=== PATIENT | female | born 1940 | race African-American/Black ===

== ENCOUNTER 2020-11-22 16:03 | Emergency (ER) | payer MEDICARE, MEDICAID, SELFPAY ==
[2020-11-22 16:18] VITALS: BP 142/61; PULSE 81; RESP 20; TEMP 36.3; O2SAT 98
--- NOTE | 2020-11-22 16:24 | ED.LOWEXIN ---
HPI - Extremity Injury (Lower) General Chief Complaint: Abdominal Pain Stated Complaint: right side/leg pain Time Seen by Provider: 11/22/20 16:25 Source: patient and RN notes reviewed Mode of arrival: ambulatory Limitations: no limitations History of Present Illness HPI Narrative: 80-year-old female presents to the [facility] with complaints of right flank, right-sided abdominal pain since . Has been taking tramadol with no relief. Denies chest pain or shortness of breath. No nausea vomiting or diarrhea. Denies any urinary symptoms. States that she has a history of an appendectomy and a gallbladder surgery along with toe surgery and wrist surgery. Patient has a history of hypertension, neuropathy, GERD, depression, thyroid disease and high cholesterol. It is worse with movement. No midline tenderness. Patient states that she is very concerned that something more serious and wants to know what it is. Discussed with patient that we do not have that capability. CT scan with and lab work would be required. To receive those she would have to go to the ER. Patient declined EMS transport and requested that her family member bring her to [facility] emergency room Related Data Home Medications Medication Instructions Recorded Confirmed amlodipine 11/22/20 apixaban [Eliquis] mg 11/22/20 atorvastatin 11/22/20 carvedilol 11/22/20 cefdinir mg 11/22/20 cholecalciferol (vitamin D3) 11/22/20 gabapentin 11/22/20 hydralazine 11/22/20 levothyroxine 11/22/20 pantoprazole PO 11/22/20 tramadol mg 11/22/20 Allergies Allergy/AdvReac Type Severity Reaction Status Date / Time GUILLERMO Inhibitors Allergy Anaphylaxis Verified 11/22/20 17:06 hydromorphone AdvReac Confusion Verified 11/22/20 17:06 lisinopril AdvReac Gastrointestinal Verified 11/22/20 17:06 Upset Review of Systems Review of Systems: All systems reviewed & are unremarkable except as noted in HPI and below Constitutional: Constitutional: Reports no additional constitutional complaints, Denies chills and Denies fever(s) Eyes: Eyes: Reports no additional eye complaints ENT: Reports system reviewed and no additional complaints, except as documented Cardiovascular: Cardiovascular: Reports no additional cardiovascular complaints, Denies chest pain and Denies radiating jaw, neck or arm pain Respiratory: Respiratory: Reports no additional respiratory complaints, Denies cough and Denies dyspnea Gastrointestinal: Gastrointestinal: Reports as per HPI, Reports abdominal pain (Right sided), Denies diarrhea, Denies nausea and Denies vomiting Genitourinary: Genitourinary: Reports as per HPI, Denies nocturia and Reports flank pain (Right-sided) Musculoskeletal: Musculoskeletal: Reports as per HPI, Reports back pain (Right flank pain) and Denies myalgias Integumentary/Breasts: Skin/Breast: Reports system reviewed and no additional complaints, except as docu Neurologic: Reports system reviewed and no additional complaints, except as documented Psychiatric: Psychiatric: Reports no additional psychiatric complaints Allergic/Immunologic: Allergic/Immunologic: Reports no additional allergic/immunologic complaints PMFSH Past Medical History Medical History (Updated 11/25/20 @ 09:09 by Perri Mason) Depression H/O gastroesophageal reflux (GERD) High cholesterol Hypertension Neuropathy Thyroid disease Surgical History Surgical History (Updated 11/22/20 @ 16:41 by Perri Mason) Hx of appendectomy Hx of cholecystectomy Social History Social History Gender identity (if verbalized by the patient): Female Comments At the time of my signature, I reviewed and agree with the nursing past medical, surgical, social, and family history. There is no relevant family history pertinent to the patient complaint. Exam Const: General: no acute distress, alert and ill appearing acutely (mild pain, holdi
== END 2020-11-22 17:00 | disposition short-term general hospital (02) ==
PROVIDERS: Emergency Provider Nurse Practitioner
DX: R10.9 Unspecified abdominal pain (principal); K21.9 Gastro-esophageal reflux disease without esophagitis; E78.00 Pure hypercholesterolemia, unspecified; I10 Essential (primary) hypertension; G62.9 Polyneuropathy, unspecified; E03.9 Hypothyroidism, unspecified
CPT/HCPCS: 99211; G0463

== ENCOUNTER 2023-03-29 21:03 | Emergency (ER) | payer MEDICARE, MEDICAID, SELFPAY ==
--- NOTE | ~2023-03-29 | CT_ITS ---
EXAMINATION: CT abdomen pelvis w con DATE: 03/30/2023 04:04 INDICATION: Epigastric abdominal pain. Nausea and vomiting. TECHNIQUE: Computed tomography (CT) of the abdomen and pelvis was performed with 100 mL Omnipaque 350 intravenous contrast. Automated exposure control and iterative reconstruction technique were employe d. The dose-length product was 1496.92 mGy-cm. COMPARISON: None. FINDINGS: The visualized portions of the lung bases demonstrate mild atelectasis. No pleural effusion . Cardiomegaly is noted. No pericardial effusion. There are pacer wires in right atrium and right adama tricle. There is a small sliding hiatal hernia. The liver is normal. There are changes of cholecystec miranda. The spleen, pancreas, and adrenal glands are normal. There is cortical thinning of the kidneys. There are cysts in the kidneys measuring up to 2.9 cm on the right. There are no dilated loops of daysi wel. The appendix is not visualized. There is calcified atherosclerosis of the aorta and many of the other arteries. There are no pathologically enlarged lymph nodes. There is no free intraperitoneal fl uid. There is mild lumbar spondylosis. There are bridging endplate osteophytes at multiple levels in the thoracic spine, consistent with diffuse idiopathic skeletal hyperostosis (DISH). IMPRESSION: 1. Small sliding hiatal hernia. Reviewed, dictated and finalized at location [facility]
[2023-03-29 21:19] VITALS: BP 149/62; PULSE 66; RESP 18; TEMP 36.1; O2SAT 100
[2023-03-29 23:37] VITALS: BP 193/78; PULSE 60; RESP 14; TEMP 36.1; O2SAT 97
[2023-03-29 23:55] VITALS: BP 180/66; PULSE 60
[2023-03-29 23:57] LABS: Basophils Percent Auto 0.4 % (0.2-1.2); Eosinophils Absolute Auto 0.1 K/mm3 (0-0.3); Eosinophils Percent Auto 1.4 % (0-4.4); Hematocrit 50.5 % (37.0-47.0); Hemoglobin 15.3 g/dL (12.0-15.0); Immature Granulocyte Absolute 0.02 K/mm3 (0.00-0.031); Immature Granulocyte Percent A 0.2 % (0-0.5); Lymphocytes Absolute Auto 1.44 K/mm3 (0.9-3.2); Lymphocytes Percent Auto 15.2 % (18.3-44.2); Mean Corpuscular HGB Conc 30.3 g/dl (32-36); Mean Corpuscular Hemoglobin 27.2 pg (26-34); Mean Corpuscular Volume 89.9 fl (80-100); Mean Platelet Volume 10.9 fl (7.4-10.4); Monocytes Absolute Auto 0.5 K/mm3 (0.1-0.6); Monocytes Percent Auto 4.7 % (2.6-8.5); Neutrophils Absolute Auto 7.4 K/mm3 (1.3-6.7); Neutrophils Percent Auto 78.1 % (45.5-73.1); Platelet Count Result 280 k/mm3 (150-375); Red Blood Count 5.62 M/mm3 (4.2-5.4); Red Cell Distribution Width 13.1 % (11.5-14.5); White Blood Count 9.5 K/mm3 (4.5-10.0)
[2023-03-29 23:58] VITALS: BP 179/71; PULSE 62
[2023-03-30] VITALS (24 sets, daily range): BP systolic 143–180; BP diastolic 57–97; PULSE 60–82; RESP 12–18; TEMP 36.5; O2SAT 94–100
[2023-03-30 00:06] LABS: Alanine Aminotransferase 22 U/L (6-35); Albumin Level 4.5 g/dL (3.5-5.1); Alkaline Phosphatase 104 U/L (38-126); Anion Gap 8 mmol/L (8-16); Aspartate Amino Transferase 30 U/L (14-36); Bilirubin,Total 0.7 mg/dL (0.2-1.3); Blood Urea Nitrogen 15 mg/dL (7-17); Calcium 9.3 mg/dL (8.4-10.2); Carbon Dioxide 30 mmol/L (22-30); Chloride 105 mmol/L (98-107); Estimated Glomerular Filt Rate > 60; Glucose 137 mg/dL (65-110); Lipase 30 U/L (23-300); Potassium 3.9 mmol/L (3.4-5.0); Sodium 143 mmol/L (137-145)
[2023-03-30] MEDS: SODIUM CHLORIDE 0.9% IV 1,000 ML 999 ML IV CONT ×2 (00:26→03:33)
[2023-03-30] MEDS: ONDANSETRON INJ 4 MG/2 ML VIAL IV PUSH (00:27)
[2023-03-30 01:22] LABS: Appearance Urine Clear (Clear); Bilirubin Urine Negative (Negative); Blood Urine Negative (Negative); Color Urine Yellow (Yellow); Glucose Urine UA Negative (Negative); Ketones Urine Negative (Negative); Leukocyte Esterase Ur Negative LEU/UL (Negative); Nitrate Urine Negative (Negative); Protein Urine Negative (Negative); Specific Grav Ur 1.015 (1.001-1.035); Urobilinogen Urine 0.2 mg/dL (<2.0); pH Urine 6.5 (5.0-9.0)
[2023-03-30 01:29] LABS: Add Urine Microscopic? NO
[2023-03-30 02:10] LABS: Lactic Acid Reflex 1.8 mmol/L (0.7-2.0)
--- NOTE | 2023-03-30 03:19 | ED.GENADULT ---
HPI - General Adult General Chief complaint: Nausea/Vomiting/Diarrhea Stated complaint: vomiting since 0300 last night via EMS Time Seen by Provider: 03/30/23 00:15 History of Present Illness HPI narrative: Patient is 82-year-old female who presents emergency department chief complaint of nausea and vomiting. The patient reports that she has been unable to keep things down since yesterday reports of multiple bouts of vomiting and reports that she has also had a lightheaded feeling after she has had these episodes. The patient reports no syncope reports that she had some abdominal discomfort when it was initially happening. Related Data Home Medications Medication Instructions Recorded Confirmed amlodipine 10 mg tablet 11/22/20 apixaban 5 mg tablet (Eliquis) mg 11/22/20 atorvastatin 10 mg tablet 11/22/20 carvedilol 25 mg tablet 11/22/20 cefdinir 300 mg capsule mg 11/22/20 cholecalciferol (vitamin D3) 25 11/22/20 mcg (1,000 unit) tablet gabapentin 300 mg capsule 11/22/20 hydralazine 50 mg tablet 11/22/20 levothyroxine 88 mcg tablet 11/22/20 pantoprazole 40 mg tablet,delayed PO 11/22/20 release tramadol 50 mg tablet mg 11/22/20 Allergies Allergy/AdvReac Type Severity Reaction Status Date / Time GUILLERMO Inhibitors Allergy Anaphylaxis Verified 03/29/23 21:04 aspirin Allergy Nausea and Verified 03/29/23 23:40 Vomiting ibuprofen Allergy Nausea and Verified 03/29/23 23:40 Vomiting Penicillins Allergy Unknown Verified 03/29/23 23:40 hydromorphone AdvReac Confusion Verified 03/29/23 21:04 lisinopril AdvReac Gastrointestinal Verified 03/29/23 21:04 Upset Review of Systems Review of Systems: A 10 system review of systems was completed on the patient and is negative except for what is stated in the HPI. Nursing and ancillary documentation was reviewed. [facility] Past Medical History Medical History Depression H/O gastroesophageal reflux (GERD) High cholesterol Hypertension Neuropathy Thyroid disease Surgical History Surgical History Hx of appendectomy Hx of cholecystectomy Social History Social History Gender identity (if verbalized by the patient): Female Exam Narrative: GENERAL: Well-appearing, well-nourished, and in no acute distress. HEAD: Normocephalic, atraumatic. EYES: PERRLA and EOMI. ENT: Nares clear, no rhinorrhea or epistaxis. Mucous membranes dry NECK: Supple. CHEST: Clear to auscultation. No respiratory distress. HEART: Regular rate and rhythm. No murmur heard. Normal peripheral pulses. ABDOMEN: Soft, nontender, nondistended, normal active bowel sounds. EXTREMITIES: Normal range of motion. No edema. SKIN: Warm, dry, no rash. NEURO: No focal deficits. Alert and oriented x3. PSYCH: Normal mood and affect. Course Vital Signs Vital signs: Vital Signs Temperature 36.1 C L 03/29/23 21:19 Pulse Rate 66 03/29/23 21:19 Respiratory Rate 18 03/29/23 21:19 Blood Pressure 149/62 H 03/29/23 21:19 Pulse Oximetry 100 03/29/23 21:19 Oxygen Delivery Room Air 03/29/23 21:19 Temperature 36.5 C 03/30/23 06:29 Pulse Rate 69 03/30/23 06:29 Respiratory Rate 17 03/30/23 06:29 Blood Pressure 180/65 H 03/30/23 06:29 Pulse Oximetry 96 03/30/23 06:29 Oxygen Delivery Room Air 03/29/23 21:19 Medical Decision Making MDM Narrative Medical decision making narrative: Differential diagnosis includes dehydration, viral syndrome, Patient received IV fluid boluses in the emergency department and also received antiemetics. The patient is able tolerate p.o. intake and is now able to ambulate patient states she feels a little lightheaded still but is much better than whenever she 1st came in. Vital Signs Vital Signs: Vital Signs [place]
--- NOTE | 2023-03-30 03:25 | ECG_ITS ---
Measurements Intervals [place] Rate: 60 P: 51 [place]: 190 QRS: 56 QRSD: 98 T: 112 QT: 379 QTc: 379 Interpretive Statements ELECTRONIC ATRIAL PACEMAKER NONSPECIFIC T-WAVE ABNORMALITY ABNORMAL RHYTHM ECG NO PREVIOUS ECG AVAILABLE FOR COMPARISON Electronically Signed On 03-30-2023 16:34:03 PSYCHIATRIC ARNP by Brayan Pedroza M.D.
[2023-03-30] MEDS: METOCLOPRAMIDE HCL INJ 10 MG/2 ML VIAL IV PUSH (03:33)
[2023-03-30 03:53] LABS: Troponin I < 0.012 ng/mL (0.000-0.034)
[2023-03-30 04:02] LABS: Troponin I < 0.012 ng/mL (0.000-0.034)
--- NOTE | 2023-03-30 06:30 | PC.NURSE ---
Patient requested we call her daughter to come pick her up. Patient's daughter called and she stated she is on her way
== END 2023-03-30 06:30 | disposition home or self-care (01) ==
PROVIDERS: Emergency Provider Emergency Medicine
DX: K52.9 Noninfective gastroenteritis and colitis, unspecified (principal); E07.9 Disorder of thyroid, unspecified; E78.00 Pure hypercholesterolemia, unspecified; G62.9 Polyneuropathy, unspecified; K21.9 Gastro-esophageal reflux disease without esophagitis; Z90.49 Acquired absence of other specified parts of digestive tract; Z79.01 Long term (current) use of anticoagulants
CPT/HCPCS: 36415; 74177; 80053; 81003; 83605; 83690; 84484; 85025; 93005; 96361; 96374; 96375; 99284; J2405; J2765; J7030; Q9967